=== PATIENT | male | born 1950 | race Caucasian/White ===

== ENCOUNTER 2016-10-30 09:20 | Day surgery (SDC) | payer OTHER ==
[2016-10-30] MEDS ORDERED: TRIAMCINOLONE ACETONIDE 40 MG/ML VIAL ONE (09:51)
[2016-10-30] MEDS ORDERED: DEXAMETHASONE 10 MG/ML VIAL ONE (09:52)
[2016-10-30] MEDS ORDERED: BUPIVACAINE 0.25% 10 ML SDV ONE (09:52)
[2016-10-30] MEDS ORDERED: LIDOCAINE 1% 30 ML SDV ONE (09:52)
[2016-10-30] MEDS ORDERED: NA BICARBONATE 50 MEQ/50 ML VIAL ONE (09:52)
[2016-10-30] MEDS ORDERED: IOPAMIDOL (ISOVUE-M 200) 20 ML VIAL IV ONE (09:52)
[2016-10-30] MEDS ORDERED: MIDAZOLAM 2 MG/2 ML VIAL ONE ×2 (09:53→10:17)
[2016-10-30] MEDS ORDERED: fentaNYL 100 MCG/2 ML INJ ONE ×2 (09:53→10:18)
[2016-10-30] MEDS ORDERED: LR 1,000 ML IV SCH (10:30)
--- NOTE | 2016-10-30 14:33 | GPN ---
[f rep st] PROCEDURE NOTE DATE OF PROCEDURE: 10/30/2016 HISTORY OF PRESENT ILLNESS: The patient presents for possible lumbar epidural steroid injection. He complains of right low back pain radiating to the right posterior thigh. He is not taking any antibiotics. ALLERGIES: Denies allergies to shellfish, latex, contrast dye, and iodine. MEDICATIONS: He stopped Xarelto Friday. PROCEDURE PERFORMED: L3-L4 intralaminar epidural steroid injection. DIAGNOSIS: Lumbar radiculopathy. SITE: Low back. PROVIDER: Aarti Asher MD. ANESTHESIA: Local with Versed 4 mg and fentanyl 150 mcg IV. COMPLICATIONS: None. ESTIMATED BLOOD LOSS: Minimal. PREPROCEDURE CONSENT: The preprocedure consent was obtained the risks, benefits , and alternatives of the procedure were explained to the patient. The risks include, but are not limited to, nerve injury, spinal cord injury, paralysis, brain injury or stroke, muscle injury, infection, adverse medication effects, bleeding, increased pain, , and any other unforeseen consequences. The patient agreed and signed the consent for the procedure. PROCEDURE VERIFICATION AND TIME-OUT: Verbal verification of patient, site, and procedure was done. All present were in agreement. Please see nursing notes for time of time-out. PROCEDURE NOTE: The patient was identified and placed in a prone position. Standard monitors were put in place. Under fluoroscopic guidance, the L3-L4 interspace was isolated and the back was prepped and draped in a sterile fashion. Then, 2 mL of 1% lidocaine was injected subcutaneously over the target location. After adequate local analgesia was obtained, an 18-gauge Tuohy needle was advanced by a [id number] technique into the epidural space under intermittent biplanar fluoroscopic guidance. [id number] was obtained at 7.5 cm stat. The position of the needle was confirmed to be correct with biplanar fluoroscopy. After negative aspiration for blood and cerebrospinal fluid, 0.5 mL of nonionic contrast dye was injected. Good flow of dye was noted in the epidural space without vascular uptake and the patient complained of a transient paresthesia to his right posterior thigh. Then, 5.5 mL of a solution containing 80 mg of triamcinolone 0.5 mL of 1% lidocaine, and the remainder preservative-free normal saline was injected in 1 mL increments and negative aspiration in between. The patient continued to experience some pain in his low back and right posterior thigh during injection. The needle was restyleted and removed. The patient tolerated the procedure well and was monitored in the recovery room with no apparent complications and was discharged home in good condition with a ride. He experienced no side effects to sedation and was instructed not to drive, operate heavy machinery, or make any life-altering decision today. He was instructed to call our clinic for nonurgent concerns or 911 in an emergency. In particular, he was taught that new weakness or numbness, changes in bowel or bladder control, fever and swelling or redness over the injection site are all urgent concerns that would warrant calling 911 or going to an emergency care facility. The patient verbalized understanding and was discharged home with postprocedure instructions and a ride. ASSESSMENT/PLAN: L3-L4 intralaminar epidural steroid injection today without complications. Note that the patient was extremely uncomfortable positioning on the bed. The patient will follow up in clinic and we will repeat the injection in 3 months' time as needed. /[id number]/MODL MTDD
--- NOTE | 2016-10-30 18:25 | DX ---
Intraoperative fluoroscopy History: L3-L4 epidural steroid injection. Comparison: None available. Findings: A single intraoperative spot film shows a needle overlying the lumbar spine. Fluoro time: 27.5 seconds. Dose: 15.8 mGy. Impression: Intraoperative fluoroscopy as above.
== END 2016-10-30 11:30 | disposition home or self-care (01) ==
LOC: FSGY 09:20
PROVIDERS: ATTEND Anesthesiology
PROC: 3E0S3BZ Introduction of Anesthetic Agent into Epidural Space, Percutaneous Approach (ICD-10-PCS; 2016-10-30)
PROC: 3E0S33Z Introduction of Anti-inflammatory into Epidural Space, Percutaneous Approach (ICD-10-PCS; principal; 2016-10-30 10:00)
DX: M54.17 Radiculopathy, lumbosacral region (principal); M79.651 Pain in right thigh; J44.9 Chronic obstructive pulmonary disease, unspecified; B19.20 Unspecified viral hepatitis C without hepatic coma; I48.91 Unspecified atrial fibrillation; Z79.01 Long term (current) use of anticoagulants
CPT/HCPCS: J2250; J3010; J3301; Q9966

== ENCOUNTER → 2017-06-11 | Outpatient (CLI) | payer BC | LOC: FIMAGING 07:23 | PROVIDERS: ATTEND Podiatrist Primary Podiatric Medicine | DX: I87.2 Venous insufficiency (chronic) (peripheral) (principal); L97.311 Non-pressure chronic ulcer of right ankle limited to breakdown of skin ==

== ENCOUNTER 2017-08-13 09:03 | Day surgery (SDC) | payer BC ==
[2017-08-13] MEDS ORDERED: NS 1,000 ML IV SCH (09:15)
[2017-08-13] MEDS ORDERED: NALOXONE HCL 0.4 MG/ML INJ ONE (09:19)
[2017-08-13] MEDS ORDERED: FLUMAZENIL 0.5 MG/5 ML MDV IVP ONE (09:19)
[2017-08-13] MEDS ORDERED: MIDAZOLAM 2 MG/2 ML VIAL ONE ×2 (09:19)
[2017-08-13] MEDS ORDERED: fentaNYL 100 MCG/2 ML INJ ONE ×3 (09:20→12:06)
[2017-08-13] MEDS ORDERED: LIDO/EPI 1% **for epidural** 30 ML SDV ONE (10:44)
[2017-08-13] MEDS ORDERED: NITROGLYCERIN 2% 1 GM PACKET ONE (11:19)
[2017-08-13] MEDS ORDERED: HYDROmorphONE/DILAUDID 2 MG/ML INJ ONE (12:15)
[2017-08-13] MEDS ORDERED: oxyCODONE IR 5 MG TAB PO PRN (12:59)
[2017-08-13] MEDS ORDERED: ONDANSETRON 4 MG/2 ML VIAL IVP PRN (13:00)
[2017-08-13] MEDS ORDERED: ONDANSETRON DISINTEGRATING 4 MG TAB PO PRN (13:00)
[2017-08-13] MEDS ORDERED: oxyCODONE IR 5 MG TAB ONE (13:00)
[2017-08-13] MEDS ORDERED: HYDROCODONE/APAP 5/325 TAB PO PRN (13:01)
[2017-08-13] MEDS ORDERED: IBUPROFEN 200 MG TAB PO ONE (13:15)
[2017-08-14] MEDS ORDERED: IOPAMIDOL (ISOVUE-300) 100 ML BTL ONE (08:22)
== END 2017-08-13 13:55 | disposition home or self-care (01) ==
LOC: FIMAGING 09:03
PROVIDERS: ATTEND Radiology Diagnostic Radiology
PROC: 065P3ZZ Destruction of Right Saphenous Vein, Percutaneous Approach (ICD-10-PCS; principal; 2017-08-13 12:50)
PROC: B54BZZA Ultrasonography of Right Lower Extremity Veins, Guidance (ICD-10-PCS; principal; 2017-08-13 12:50)
PROC: B51B1ZZ Fluoroscopy of Right Lower Extremity Veins using Low Osmolar Contrast (ICD-10-PCS; principal; 2017-08-13 12:50)
DX: I83.015 Varicose veins of right lower extremity with ulcer other part of foot (principal); L97.519 Non-pressure chronic ulcer of other part of right foot with unspecified severity; I48.91 Unspecified atrial fibrillation; I50.9 Heart failure, unspecified; Z86.718 Personal history of other venous thrombosis and embolism
CPT/HCPCS: 36478; 75820; 99152; 99153; C1769; J1170; J2250; J2310; J3010; Q9967